=== PATIENT | male | born 1955 ===

== ENCOUNTER 2022-01-21 10:51 | Day surgery (SDC) | payer BC ==
[~2022-01-21] VITALS: Ht 188 cm; Wt 92.1 kg
[2022-01-21 11:54] VITALS: BP 148/88; PULSE 79; TEMP 97.6
[2022-01-21] MEDS ORDERED: NORCO 325 MG-51 TAB PO (14:56)
[2022-01-21 15:20] VITALS: BP 138/74; PULSE 71; TEMP 97.2
--- NOTE | 2022-01-21 15:20 | NUR ---
PT TO BAY 2 PER CART FROM PACU. REPORT RECEIVED. VS OBTAINED. CALL LIGHT WITHIN REACH.
[2022-01-21 15:35] VITALS: BP 135/70; PULSE 76
--- NOTE | 2022-01-21 15:35 | NUR ---
PT TOLERATING JUICE, MUFFIN, AND PUDDING. DENIES ANY NEEDS AT THIS TIME.
[2022-01-21 15:50] VITALS: BP 138/75; PULSE 76
[2022-01-21 16:05] VITALS: BP 136/62; PULSE 80
--- NOTE | 2022-01-21 16:25 | NUR ---
1605-IV DC'D. PT TOLERATED WELL 1610-DISCHARGE EDUCATION COMPLETED WITH PT. VERBALIZED UNDERSTANDING OF HOME AND FOLLOW UP CARE. ALL QUESTIONS ANSWERED. DISCHARGE PAPERWORK GIVEN TO PT. 1625-PT OFF UNIT PER WHEELCHAIR. PT DISCHARGE TO HOME WITH FRIEND PER PERSONAL VEHICLE.
[2022-01-21 17:12] VITALS: BP 134/74; PULSE 76; TEMP 97.7
== END 2022-01-21 16:25 | disposition home or self-care (01) ==
LOC: SDCO 10:51
DX: K40.90 Unilateral inguinal hernia, without obstruction or gangrene, not specified as recurrent (principal)
CPT/HCPCS: C1781; J0690; J1100; J1885; J2405; J2704; J3010; J7120